=== PATIENT | male | born 2000 | race African-American/Black ===

== ENCOUNTER 2019-08-30 10:44 | Emergency (ER) | payer SELFPAY ==
--- NOTE | 2019-08-30 12:05 | EDPHYS ---
Physician Documentation [facility] Name: Lucille Lerner Age: 19 yrs Sex: Male : 2000 Arrival Date: 08/30/2019 Time: 10:46 Bed 20 Private MD: ED Physician Juan F Almonte HPI: 08/29 11:28 This 19 yrs old Black Male presents to ER via Ambulatory with complaints of Sore kb Throat, InQuicker. 11:28 The patient presents with sore throat. The patient describes throat pain as constant. kb Onset: The symptoms/episode began/occurred this morning. Severity of symptoms: At their worst the symptoms were moderate, in the emergency department the symptoms are unchanged. Modifying factors: The symptoms are alleviated by nothing, the symptoms are aggravated by swallowing, Patient's oral intake status: good Denies contact with similarly ill indivduals. Associated signs and symptoms: Pertinent positives: Sore throat Pertinent negatives chest pain, chills, cough, diarrhea, dysphagia, earache, fever, flu-like symptoms, headache, nausea, rhinorrhea, shortness of breath, vomiting. The patient has not experienced similar symptoms in the past. The patient has not recently seen a physician. Historical: - Allergies: 11:08 No Known Allergies; ca1 - Home Meds: 11:08 None [Active]; ca1 - PMHx: 11:08 Anxiety; Panic Attacks; Heart Murmur; ca1 - PSHx: 11:08 Tonsillectomy; ca1 - Immunization history:: Adult Immunizations not up to date. - Social history:: Smoking status: Patient denies any tobacco usage or history of. ROS: 11:27 Constitutional: Negative for fever, chills, and weight loss, Neck: Negative for injury, kb pain, and swelling, Cardiovascular: Negative for chest pain, palpitations, and edema, Abdomen/GI: Negative for abdominal pain, nausea, vomiting, diarrhea, and constipation, Back: Negative for injury and pain, MS/Extremity: Negative for injury and deformity, Skin: Negative for injury, rash, and discoloration, Neuro: Negative for headache, weakness, numbness, tingling, and seizure. 11:27 ENT: Positive for sore throat. 11:27 Respiratory: Positive for wheezing, Negative for cough, dyspnea on exertion, hemoptysis, orthopnea, pleurisy, shortness of breath, sputum production. Exam: 11:27 Constitutional: This is a well developed, well nourished patient who is awake, alert, kb and in no acute distress. Head/Face: Normocephalic, atraumatic. ENT: Nares patent. No nasal discharge, no septal abnormalities noted. Tympanic membranes are normal and external auditory canals are clear. Oropharynx with no redness, swelling, or masses, exudates, or evidence of obstruction, uvula midline. Mucous membranes moist. Neck: Trachea midline, no thyromegaly or masses palpated, and no cervical lymphadenopathy. Supple, full range of motion without nuchal rigidity, or vertebral point tenderness. No Meningismus. Chest/axilla: Normal chest wall appearance and motion. Nontender with no deformity. No lesions are appreciated. Cardiovascular: Regular rate and rhythm with a normal S1 and S2. No gallops, murmurs, or rubs. Normal PMI, no JVD. No pulse deficits. Respiratory: Lungs have equal breath sounds bilaterally, clear to auscultation and percussion. No rales, rhonchi or wheezes noted. No increased work of breathing, no retractions or nasal flaring. Abdomen/GI: Soft, non-tender, with normal bowel sounds. No distension or tympany. No guarding or rebound. No evidence of tenderness throughout. Skin: Warm, dry with normal turgor. Normal color with no rashes, no lesions, and no evidence of cellulitis. MS/ Extremity: Pulses equal, no cyanosis. Neurovascular intact. Full, normal range of motion. Neuro: Awake and alert, GCS 15, oriented to person, place, time, and situation. Cranial nerves II-XII grossly intact. Motor strength 5/5 in all extremities. Sensory grossly intact. Cerebellar exam normal. Normal gait. Vital Signs: 11:06 BP 140 / 82; Pulse 99; Resp 16 S; Temp 98.7(O); Pulse Ox 100% on R/A; Weight 104.33 kg ca1 (R); Height 6 ft. 2 in. (187.96 cm) (R); Pain 0/10; 12:31 BP 152 / 78; Pulse 87; Resp 16 S; Temp 98.6(O); Pulse Ox 100% on R/A; ca1 11:06 Body Mass Index 29.53 (104.33 kg, 187.96 cm) ca1 MDM: 10:58 Patient medically screened. kb 11:28 Data reviewed: vital signs, nurses notes. Data interpreted: Pulse oximetry: on room air kb is 100 %. Interpretation: normal. 12:04 Counseling: I had a detailed discussion with the patient and/or guardian regarding: the kb historical points, exam findings, and any diagnostic results supporting the discharge/admit diagnosis, lab results, the need for outpatient follow up, a family practitioner, to return to the emergency department if symptoms worsen or persist or if there are any questions or concerns that arise at home. 08/29 11:04 Order name: Strep; Complete Time: 11:45 kb 08/29 11:44 Order name: Throat Culture EDMS Administered Medications: No medications were administered Disposition: 13:24 Co-signature as Attending Physician, Juan F Almonte MD I agree with the assessment and kdr plan of care. Disposition: 08/30/19 12:05 Discharged to Home. Impression: Pain in throat. - Condition is Stable. - Discharge Instructions: Sore Throat, [id number]. - Medication Reconciliation Form, Thank You Letter, Antibiotic Education, Prescription Opioid Use, Work release form form. - Follow up: Emergency Department; When: As needed; Reason: Worsening of condition. Follow up: Private Physician; When: 2 - 3 days; Reason: Recheck today's complaints, Continuance of care, Re-evaluation by your physician. Signatures: Dispatcher [employer] EDMS Syl Riggins, VELOCITY [employer]ER-C MICKEY-Juan F Beatty MD MD [facility] Nilda Flor RN RN ca1 Corrections: (The following items were deleted from the chart) 12:32 12:05 08/30/2019 12:05 Discharged to Home. Impression: Pain in throat. Condition is ca1 Stable. Forms are Medication Reconciliation Form, Thank You Letter, Antibiotic Education, Prescription Opioid Use. Follow up: Emergency Department; When: As needed; Reason: Worsening of condition. Follow up: Private Physician; When: 2 - 3 days; Reason: Recheck today's complaints, Continuance of care, Re-evaluation by your physician. kb
--- NOTE | 2019-08-30 12:05 | ER ---
Nurse's Notes [facility] Name: Lucille Lerner Age: 19 yrs Sex: Male : 2000 Arrival Date: 08/30/2019 Time: 10:46 Bed 20 Private MD: Diagnosis: Pain in throat Presentation: 08/29 11:06 Chief complaint: Patient states: Sore throat since this morning. Denies cough, ca1 congestion and fever. Coronavirus screen: Patient denies fever greater than 100.4F, cough, shortness of breath, or difficulty breathing. Proceed with normal triage process. Ebola Screen: Patient negative for fever greater than or equal to 101.5 degrees Fahrenheit, and additional compatible Ebola Virus Disease symptoms Patient denies exposure to infectious person. Patient denies travel to an Ebola-affected area in the 21 days before illness onset. No symptoms or risks identified at this time. Initial Sepsis Screen: Does the patient meet any 2 criteria? No. Patient's initial sepsis screen is negative. Does the patient have a suspected source of infection? No. Patient's initial sepsis screen is negative. Risk Assessment: Do you want to hurt yourself or someone else? Patient reports no desire to harm self or others. Onset of symptoms was August 30, 2019. 11:06 Method Of Arrival: Ambulatory ca1 11:06 Acuity: [place] 4 ca1 Historical: - Allergies: 11:08 No Known Allergies; ca1 - Home Meds: 11:08 None [Active]; ca1 - PMHx: 11:08 Anxiety; Panic Attacks; Heart Murmur; ca1 - PSHx: 11:08 Tonsillectomy; ca1 - Immunization history:: Adult Immunizations not up to date. - Social history:: Smoking status: Patient denies any tobacco usage or history of. Screenin:20 Abuse screen: Denies threats or abuse. Denies injuries from another. Nutritional ca1 screening: No deficits noted. Tuberculosis screening: No symptoms or risk factors identified. Fall Risk None identified. Assessment: 11:20 General: Appears in no apparent distress. comfortable, Behavior is calm, cooperative, ca1 appropriate for age. Pain: Denies pain. Neuro: Level of Consciousness is awake, alert, obeys commands, Oriented to person, place, time, situation, Appropriate for age. Respiratory: Airway is patent Respiratory effort is even, unlabored, Respiratory pattern is regular, symmetrical, Breath sounds are clear bilaterally. EENT: Throat is clear with gag reflex present. Derm: Skin is intact, is healthy with good turgor, Skin is pink, warm \T\ dry. Musculoskeletal: Circulation, motion, and sensation intact. Capillary refill < 3 seconds. 12:31 Reassessment: Patient appears in no apparent distress at this time. Patient is alert, ca1 oriented x 3, equal unlabored respirations, skin warm/dry/pink. Vital Signs: 11:06 BP 140 / 82; Pulse 99; Resp 16 S; Temp 98.7(O); Pulse Ox 100% on R/A; Weight 104.33 kg ca1 (R); Height 6 ft. 2 in. (187.96 cm) (R); Pain 0/10; 12:31 BP 152 / 78; Pulse 87; Resp 16 S; Temp 98.6(O); Pulse Ox 100% on R/A; ca1 11:06 Body Mass Index 29.53 (104.33 kg, 187.96 cm) ca1 ED Course: 10:46 Patient arrived in ED. ag5 10:51 Syl Riggins FNP-C is [facility]. kb 10:51 Juan F Almonte MD is Attending Physician. kb 11:06 Nilda Flor, SHARIFA is Primary Nurse. ca1 11:07 Triage completed. ca1 11:08 Arm band placed on right wrist. ca1 11:20 Patient has correct armband on for positive identification. Bed in low position. Call ca1 light in reach. Side rails up X 1. Pulse ox on. NIBP on. 11:20 No provider procedures requiring assistance completed. Patient did not have IV access ca1 during this emergency room visit. Administered Medications: No medications were administered Outcome: 12:05 Discharge ordered by . kb 12:32 Discharged to home ambulatory. ca1 12:32 Condition: stable 12:32 Discharge instructions given to patient, Instructed on discharge instructions, follow up and referral plans. Demonstrated understanding of instructions, follow-up care. 12:32 Patient left the ED. ca1 Signatures: Syl Riggins FNP-C FNP-Nilda Randall RN RN ca1 Eze Nicolle ag5
[2019-08-30 12:39] VITALS: O2SAT 100
[2019-08-30 12:41] VITALS: BP 152/78; TEMP 98.6
== END 2019-08-30 12:32 | disposition home or self-care (01) ==
LOC: ER 10:44
DX: R07.0 Pain in throat (principal)
CPT/HCPCS: 87070; 87081; 99283

== ENCOUNTER 2019-09-03 06:00 | Emergency (ER) | payer SELFPAY ==
--- NOTE | 2019-09-03 07:15 | RAD REPORT ---
EXAM DESCRIPTION: RAD - Chest Pa And Lat (2 Views) - 09/03/2019 6:49 am CLINICAL HISTORY: COUGH, dizziness, sore throat, productive cough with hemoptysis COMPARISON: None TECHNIQUE: Frontal and lateral views of the chest were obtained. FINDINGS: The lungs are clear. Heart size is normal and central vasculature is within normal limit s. No pleural effusion or pneumothorax seen. No acute bony finding noted. No aortic abnormality. No significant interval change. IMPRESSION: No acute cardiopulmonary process.
--- NOTE | 2019-09-03 07:25 | EDPHYS ---
Physician Documentation [facility] Name: Lucille Lerner Age: 19 yrs Sex: Male : 2000 Arrival Date: 09/03/2019 Time: 06:02 Bed 5 Private MD: ED Physician Saul Hernandez HPI: 09/02 06:27 This 19 yrs old Black Male presents to ER via Ambulatory with complaints of Dizziness, cp Vision Problem, Sore Throat. 06:27 The patient presents with dizziness. Onset: The symptoms/episode began/occurred this cp morning, and improved. Associated signs and symptoms: Pertinent positives: chest heaviness, sore throat, productive cough, Pertinent negatives: abdominal pain, headache, vomiting, diarrhea. Patient's baseline: Neuro: alert and fully oriented, Motor: no deficits, Ambulation: walks without assistance, Speech: normal. Historical: - Allergies: 06:18 No Known Allergies; rv - Home Meds: 06:18 None [Active]; rv - PMHx: 06:18 Anxiety; Heart Murmur; Panic Attacks; rv - PSHx: 06:18 Tonsillectomy; rv - Immunization history:: Adult Immunizations up to date. - Social history:: Smoking status: Patient denies any tobacco usage or history of. ROS: 06:30 Eyes: Negative for injury, pain, redness, and discharge. cp 06:30 Constitutional: Negative for body aches, chills, fever, poor PO intake. 06:30 ENT: Positive for rhinorrhea, sore throat, Negative for drainage from ear(s), ear pain, difficulty swallowing, difficulty handling secretions. 06:30 Cardiovascular: Positive for chest pain, Negative for palpitations. 06:30 Respiratory: Positive for cough, hemoptysis, Negative for shortness of breath, wheezing. 06:30 Abdomen/GI: Negative for abdominal pain, vomiting, diarrhea, constipation. 06:30 : Negative for urinary symptoms. 06:30 Skin: Negative for cellulitis, rash. 06:30 Neuro: Negative for altered mental status, headache, weakness. 06:30 All other systems are negative. Exam: 06:35 Constitutional: The patient appears in no acute distress, alert, awake, comfortable, cp non-diaphoretic, non-toxic, well developed, well nourished. 06:35 Head/Face: Normocephalic, atraumatic. cp 06:35 Eyes: Periorbital structures: appear normal, Conjunctiva: normal, no exudate, no injection, Lids and lashes: appear normal, bilaterally. 06:35 ENT: External ear(s): are unremarkable, Ear canal(s): cerumen impaction, that is moderate, bilaterally, TM's: not visable, because of cerumen, Nose: is normal, Mouth: Lips: moist, Oral mucosa: pink and intact, moist, Posterior pharynx: Airway: no evidence of obstruction, patent, Tonsils: surgically absent, swelling, is not appreciated, erythema, is not appreciated, exudate, is not appreciated, Voice: is hoarse. 06:35 Neck: ROM/movement: is normal, is supple, without pain, no range of motions limitations, no meningismus, Lymph nodes: no appreciated lymphadenopathy. 06:35 Chest/axilla: Inspection: normal, Palpation: is normal, no crepitus, no tenderness. 06:35 Cardiovascular: Rate: normal, Rhythm: regular. 06:35 Respiratory: the patient does not display signs of respiratory distress, Respirations: normal, no use of accessory muscles, no retractions, labored breathing, is not present, Breath sounds: are clear throughout, no decreased breath sounds, no stridor, no wheezing. 06:35 Abdomen/GI: Exam negative for discomfort, distension, guarding, Inspection: abdomen appears normal. 06:35 Skin: no rash present. Vital Signs: 06:15 BP 140 / 100; Pulse 80; Resp 18; Temp 98.6; Pulse Ox 100% ; Weight 104.33 kg; Height 6 rv ft. 2 in. (187.96 cm); Pain 0/10; 06:35 BP 151 / 97 LA Supine; Pulse 85; Resp 19; Pulse Ox 100% ; rr5 06:37 BP 162 / 109 LA Sitting; Pulse 90; Resp 16; Pulse Ox 100% on R/A; rr5 06:39 BP 145 / 111 LA Standing; Pulse 92; Resp 17; Pulse Ox 99% on R/A; rr5 07:32 BP 142 / 84; Pulse 71; Resp 16; Temp 98.6; Pulse Ox 100% ; bp 06:15 Body Mass Index 29.53 (104.33 kg, 187.96 cm) rv MDM: 06:09 Patient medically screened. cp 06:52 Test interpretation: by ED physician or midlevel provider: chest xray negative for cp infiltrates or focal pneumonia. 07:23 Data reviewed: vital signs, nurses notes, lab test result(s), and as a result, I will cp discharge patient. 09/02 06:26 Order name: Strep; Complete Time: 07:19 cp 09/02 07:19 Interpretation: GP A STREP SC \T\nbsp; GROUP A STREP SCREEN-- \T\nbsp; \T\nbsp; POSITIVE; cp Reviewed. 09/02 06:26 Order name: [place] Screen Profile; Complete Time: 07:19 cp 09/02 06:26 Order name: Orthostatics; Complete Time: 06:40 cp 09/02 06:26 Order name: XRAY Chest Pa And Lat (2 Views); Complete Time: 07:19 09/02 07:20 Interpretation: Report reviewed. cp Administered Medications: 07:30 Drug: Bicillin L-A 1.2 million units Route: IM; Site: left gluteus; bp 07:44 Follow up: Response: No adverse reaction bp Disposition: 09/03 06:52 Co-signature as Attending Physician, Saul Hernandez MD I agree with the assessment and jasper plan of care. Disposition: 09/03/19 07:23 Discharged to Home. Impression: Streptococcal pharyngitis, Cough. - Condition is Stable. - Discharge Instructions: Strep Throat, How to Take Your Blood Pressure, [id number], Cough, Adult. - Prescriptions for Tessalon Perles 100 mg Oral Capsule - take 2 capsule by ORAL route every 8 hours As needed; 30 capsule. - Medication Reconciliation Form, Thank You Letter, Antibiotic Education, Prescription Opioid Use form. - Follow up: Private Physician; When: 2 - 3 days; Reason: Worsening of condition. - Problem is new. - Symptoms have improved. Signatures: Dispatcher [employer] Saul Ramos MD MD cha Page, Corey, PA PA cp Peltier, Brian, SHARIFA RN bp Lj Allison, SHARIFA RN rv Corrections: (The following items were deleted from the chart) 09/02 07:25 07:23 09/03/2019 07:23 Discharged to Home. Impression: Streptococcal pharyngitis. cp Condition is Stable. Forms are Medication Reconciliation Form, Thank You Letter, Antibiotic Education, Prescription Opioid Use. Follow up: Private Physician; When: 2 - 3 days; Reason: Worsening of condition. Problem is new. Symptoms have improved. cp 07:44 07:25 09/03/2019 07:23 Discharged to Home. Impression: Streptococcal pharyngitis; bp Cough. Condition is Stable. Discharge Instructions: Strep Throat, How to Take Your Blood Pressure, [id number]. Forms are Medication Reconciliation Form, Thank You Letter, Antibiotic Education, Prescription Opioid Use. Follow up: Private Physician; When: 2 - 3 days; Reason: Worsening of condition. Problem is new. Symptoms have improved. cp
--- NOTE | 2019-09-03 07:25 | ER ---
Nurse's Notes [facility] Name: Lucille Lerner Age: 19 yrs Sex: Male : 2000 Arrival Date: 09/03/2019 Time: 06:02 Bed 5 Private MD: Diagnosis: Streptococcal pharyngitis;Cough Presentation: 09/02 06:15 Chief complaint: Patient states: WOKE UP WITH DIZZINESS LASTED FOR COUPLE OF MINUTES. rv DENIES ANY FEVER. HE WAS SEEN SATURDAY AND NEGATIVE FOR STREP. SORE THROAT AND COUGH IS NOT GETTING BETTER. COUGHING OUT YELLOW MUCUS WITH BLOOD. Coronavirus screen: Patient reports a subjective fever or greater than 100.4F, or cough, or shortness of breath, or difficulty breathing. Surgical mask placed on patient. Patient moved to private room, placed in contact and droplet isolation with eye protection until further assessment. Patient denies travel on a cruise ship or to a country the [facility] currently lists as an affected area. Patient denies contact with known and/or suspected case of COVID-19. Ebola Screen: No symptoms or risks identified at this time. Initial Sepsis Screen: Does the patient meet any 2 criteria? No. Patient's initial sepsis screen is negative. Does the patient have a suspected source of infection? No. Patient's initial sepsis screen is negative. Risk Assessment: Do you want to hurt yourself or someone else? Patient reports no desire to harm self or others. 06:15 Method Of Arrival: Ambulatory 06:15 Acuity: [place] 5 rv 06:19 Onset of symptoms was September 03, 2019 at 05:00. rv Triage Assessment: 06:18 General: Appears in no apparent distress. comfortable, Behavior is calm, cooperative. rv Pain: Denies pain. EENT: Throat is pink. Neuro: Level of Consciousness is awake, alert, obeys commands, Oriented to person, place, time, situation. Cardiovascular: Patient's skin is warm and dry. Respiratory: Airway is patent Breath sounds are clear bilaterally. GI: No signs and/or symptoms were reported involving the gastrointestinal system. Historical: - Allergies: 06:18 No Known Allergies; rv - Home Meds: 06:18 None [Active]; rv - PMHx: 06:18 Anxiety; Heart Murmur; Panic Attacks; rv - PSHx: 06:18 Tonsillectomy; rv - Immunization history:: Adult Immunizations up to date. - Social history:: Smoking status: Patient denies any tobacco usage or history of. Screenin:19 Abuse screen: Denies threats or abuse. Denies injuries from another. Nutritional rv screening: No deficits noted. Tuberculosis screening: No symptoms or risk factors identified. Fall Risk None identified. Assessment: 06:19 Reassessment: SEE TRIAGE NOTES. General:. rv 06:19 Respiratory: Airway is patent Respiratory effort is even, unlabored. rv 07:00 Reassessment: RECD REPORT FROM MADIHA SKAGGS. 19YO BM P/W SORE THROAT AND ANXIETY, SEEN bp FOR SAME LAST WEEK. Respiratory: Breath sounds are clear bilaterally. 07:32 Reassessment: D/C ON HOLD FOR SHOT TIME. bp 07:43 Reassessment: PT D/C HOME AMBULATORY WITH FAMILY, DX WITH STREP PHARYNGITIS. bp Vital Signs: 06:15 BP 140 / 100; Pulse 80; Resp 18; Temp 98.6; Pulse Ox 100% ; Weight 104.33 kg; Height 6 rv ft. 2 in. (187.96 cm); Pain 0/10; 06:35 BP 151 / 97 LA Supine; Pulse 85; Resp 19; Pulse Ox 100% ; rr5 06:37 BP 162 / 109 LA Sitting; Pulse 90; Resp 16; Pulse Ox 100% on R/A; rr5 06:39 BP 145 / 111 LA Standing; Pulse 92; Resp 17; Pulse Ox 99% on R/A; rr5 07:32 BP 142 / 84; Pulse 71; Resp 16; Temp 98.6; Pulse Ox 100% ; bp 06:15 Body Mass Index 29.53 (104.33 kg, 187.96 cm) rv ED Course: 06:02 Patient arrived in ED. ds1 06:08 Saul Sorenson PA is PHCP. cp 06:08 Saul Hernandez MD is Attending Physician. cp 06:14 Lj Allison RN is Primary Nurse. rv 06:17 Triage completed. rv 06:18 Arm band placed on Patient placed in the treatment room, on a stretcher, Patient rv notified of wait time. 06:19 Patient has correct armband on for positive identification. Bed in low position. Call rv light in reach. Pulse ox on. NIBP on. 06:40 Initial lab(s) drawn, by me, sent to lab. Strep swab sent to lab. rv 06:56 XRAY Chest Pa And Lat (2 Views) In Process Unspecified. EDMS 07:10 Kris Terry, RN is Primary Nurse. bp 07:33 No provider procedures requiring assistance completed. Patient did not have IV access bp during this emergency room visit. Administered Medications: 07:30 Drug: Bicillin L-A 1.2 million units Route: IM; Site: left gluteus; bp 07:44 Follow up: Response: No adverse reaction bp Outcome: 07:23 Discharge ordered by MD. cp 07:43 Discharged to home ambulatory, with family. bp 07:43 Condition: stable 07:43 Discharge instructions given to patient, Instructed on discharge instructions, follow up and referral plans. medication usage, Demonstrated understanding of instructions, follow-up care, medications, Prescriptions given X 1. 07:44 Patient left the ED. bp Signatures: Dispatcher [employer] EDNM RazoDoris ds1 Saul Sorenson PA PA cp Kris Terry, RN RN bp Lj Allison, RN RN rv Madiha Maier, RN RN rr5
[2019-09-03] MEDS ORDERED: PEN G BENZ LA 1.2MU/2ML SYRINGE IM ONE (07:29)
[2019-09-03 10:06] VITALS: TEMP 98.6
[2019-09-03 10:12] VITALS: BP 142/84; O2SAT 100
== END 2019-09-03 07:44 | disposition home or self-care (01) ==
LOC: ER 06:00
DX: J02.0 Streptococcal pharyngitis (principal)
CPT/HCPCS: 36415; 71046; 86308; 87081; 96372; 99284; J0561

== ENCOUNTER 2019-11-01 15:32 | Emergency (ER) | payer SELFPAY ==
[2019-11-01] MEDS ORDERED: LORazepam 2 MG/ML VIAL ONE (15:51)
--- NOTE | 2019-11-01 16:12 | RAD REPORT ---
EXAM DESCRIPTION: RAD - Hand Right 3 View - 11/01/2019 4:06 pm CLINICAL HISTORY: hand injury, hand trauma COMPARISON: No comparisons FINDINGS: No fracture is identified. There is no dislocation or periosteal reaction noted. No forei gn body or significant soft tissue abnormality. IMPRESSION: Negative right hand examination.
--- NOTE | 2019-11-01 16:13 | RAD REPORT ---
EXAM DESCRIPTION: CT - Head Brain Wo Cont - 11/01/2019 3:56 pm CLINICAL HISTORY: headache, syncope COMPARISON: No comparisons TECHNIQUE: Axial 5 mm thick images of the head were obtained without IV contrast. All CT scans are performed using dose optimization technique as appropriate and may include automated exposure control or mA/KV adjustment according to patient size. FINDINGS: No intracranial hemorrhage, mass, edema or shift of mid-line structures. No acute infarcti on changes seen. No abnormal extra-axial fluid collections. Ventricles are normal. Mastoid air cells and visualized portions of the paranasal sinuses are clear. No acute bony findings. IMPRESSION: Negative non-contrast CT head examination.
[2019-11-01 16:14] LABS: Absolute Lymphocytes (CBC) 2.1 K/uL (0.7-4.9); Basophils % 0.6 % (0-1.3); Hematocrit 43.7 % (39.6-49.0); Lymphocytes % 39.4 % (15.3-44.8); MPV 10.8 fL (7.6-11.3); Protime INR 0.98; RBC Red Blood Cell Count 4.87 M/uL (4.33-5.43)
[2019-11-01 16:25] LABS: ALT/SGPT 80 U/L (12-78); AST/SGOT 29 U/L (15-37); Albumin 3.9 g/dL (3.4-5.0); Alkaline Phosphatase 94 U/L (45-117); BUN Blood Urea Nitrogen 9 mg/dL (7-18); Bicarbonate 27 mmol/L (21-32); Bilirubin Direct 0.1 mg/dL (0-0.2); Bilirubin Total 0.3 mg/dL (0.2-1.0); Glucose Level 96 mg/dL (74-106); Magnesium 1.9 mg/dL (1.8-2.4); NT PRO-BNP 7 pg/mL (<125); Protein, Total 7.5 g/dL (6.4-8.2); Sodium Level 144 mmol/L (136-145); Troponin (Emerg Dept Use Only) < 0.02 ng/mL (0.0-0.045)
[2019-11-01] MEDS ORDERED: METOCLOPRAMIDE 10 MG/2mL INJ ONE (17:08)
[2019-11-01] MEDS ORDERED: DIPHENHYDRAMINE 50 MG/ML VIAL ONE (17:08)
[2019-11-01] MEDS ORDERED: NA CHLORIDE 0.9% 100 ML IV ONE (17:08)
--- NOTE | 2019-11-01 18:12 | EDPHYS ---
[facility] Name: Lucille Lerner Age: 19 yrs Sex: Male : 2000 Arrival Date: 11/01/2019 Time: 15:34 Bed 7 Private MD: ED Physician Raheem Suarez HPI: 10/31 15:38 This 19 yrs old Black Male presents to ER via Unassigned with complaints of Headache, jmm Syncope. 15:38 The patient complains of pain to the forehead. The patient describes the headache as jmm aching. Onset: The symptoms/episode began/occurred gradually, 3.5 hour(s) ago. Associated signs and symptoms: Pertinent positives: syncope blurred vision. This is a 19 year old male with no known chronic medical conditions that presents to the ED with complaints of 1 week of headaches normally beginning around noon. Patient states the headaches have occurred every other day. Today the headache began around noon and migrated to the back. Patient states this headache had visual changes. Patient states he passed out. Denies fever, vomiting,. nausea. . Historical: - Allergies: 15:39 No Known Allergies; sv - PMHx: 15:39 Anxiety; Heart Murmur; Panic Attacks; sv - PSHx: 15:39 Tonsillectomy; sv - Immunization history:: Adult Immunizations up to date. - Social history:: Smoking status: Patient denies any tobacco usage or history of. Patient/guardian denies using alcohol, street drugs, IV drugs. ROS: 15:38 Constitutional: Negative for fever, chills, and weight loss, Cardiovascular: Negative jmm for chest pain, palpitations, and edema, Respiratory: Negative for shortness of breath, cough, wheezing, and pleuritic chest pain, Abdomen/GI: Negative for abdominal pain, nausea, vomiting, diarrhea, and constipation. 15:38 MS/extremity: Positive for injury or acute deformity. 15:38 Neuro: Positive for headache, syncope. 15:38 All other systems are negative. Exam: 15:38 Constitutional: This is a well developed, well nourished patient who is awake, alert, jmm and in no acute distress. Head/Face: atraumatic. Eyes: EOMI, no conjunctival erythema appreciated ENT: Moist Mucus Membranes Neck: Trachea midline, Supple Chest/axilla: Normal chest wall appearance and motion. Cardiovascular: Regular rate and rhythm. No edema appreciated Respiratory: Normal respirations, no respiratory distress appreciated Abdomen/GI: Non distended, soft Back: Normal ROM Skin: General appearance color normal 15:38 Musculoskeletal/extremity: right dorsal hand TTP, compartments are soft, FROM appreciated, < 2 sec dist cap refill, NVI. 15:38 Skin: Appearance: Color: normal in color. 15:38 Neuro: Orientation: is normal, Mentation: is normal, Memory: is normal. 15:38 Psych: Behavior/mood is pleasant, cooperative. Vital Signs: 15:27 BP 170 / 95; Pulse 94; Resp 20; Temp 98.3; Pulse Ox 100% ; sv 15:50 BP 162 / 90; Pulse 87; Resp 16; Pulse Ox 99% ; sv 17:07 BP 162 / 94; Pulse 84; Resp 18; Pulse Ox 100% ; sv MDM: 15:42 Patient medically screened. [facility] 18:10 Data reviewed: vital signs, nurses notes. Counseling: I had a detailed discussion with mine the patient and/or guardian regarding: the historical points, exam findings, and any diagnostic results supporting the discharge/admit diagnosis, lab results, radiology results, the need for outpatient follow up, to return to the emergency department if symptoms worsen or persist or if there are any questions or concerns that arise at home. ED course: CT negative within 6 hours. I do not suspect SAH. Patient is advised to follow up with pcp and otherwise given strict return precautions. Patient understood and agrees with the plan of care. . 10/31 15:37 Order name: Basic Metabolic Panel; Complete Time: 16:30 [facility] 10/31 15:37 Order name: CBC with Diff; Complete Time: 16:17 [facility] 10/31 15:37 Order name: LFT's; Complete Time: 16:30 [facility] 10/31 15:37 Order name: Magnesium; Complete Time: 16:30 [facility] 10/31 15:37 Order name: NT PRO-BNP; Complete Time: 16:30 [facility] 10/31 15:37 Order name: PT-INR; Complete Time: 16:30 [facility] 10/31 15:37 Order name: Troponin (emerg Dept Use Only); Complete Time: 16:30 [facility] 10/31 15:37 Order name: CT Head Brain wo Cont; Complete Time: 16:17 [facility] 10/31 15:41 Order name: Hand Right 3 View XRAY; Complete Time: 16:17 [facility] 10/31 16:34 Order name: D-Dimer; Complete Time: 17:11 [facility] 10/31 15:37 Order name: EKG; Complete Time: 15:37 [facility] 10/31 15:37 Order name: Cardiac monitoring; Complete Time: 17:44 [facility] 10/31 15:37 Order name: EKG - Nurse/Tech; Complete Time: 16:46 [facility] 10/31 15:37 Order name: IV Saline Lock; Complete Time: 15:53 [facility] 10/31 15:37 Order name: Labs collected and sent; Complete Time: 15:53 [facility] 10/31 15:37 Order name: O2 Per Protocol; Complete Time: 15:53 [facility] 10/31 15:37 Order name: O2 Sat Monitoring; Complete Time: 15:53 jm Administered Medications: 15:47 Drug: Ativan 1 mg Route: IVP; Infused Over: 2 mins; Site: left antecubital; sv 16:30 Follow up: Response: No adverse reaction sv 17:05 CANCELLED (Physician Discretion): Reglan 10 mg IVP once; over 1 to 2 minutes sv 17:10 Drug: Benadryl 25 mg Route: IVP; Site: left antecubital; sv 17:45 Follow up: Response: No adverse reaction sv 17:12 Drug: Reglan 10 mg Route: IVP; Site: left antecubital; sv 17:21 Follow up: Response: No adverse reaction sv Disposition: 11/01/19 18:11 Discharged to Home. Impression: Headache, Elevated blood-pressure reading, without diagnosis of hypertension. - Condition is Stable. - Discharge Instructions: General Headache Without Cause, Migraine Headache, Hypertension, DASH Eating Plan. - Prescriptions for Hydrochlorothiazide 12.5 mg Oral Tablet - take 1 tablet by ORAL route once daily; 30 tablet. - Medication Reconciliation Form, Thank You Letter, Antibiotic Education, Prescription Opioid Use form. - Follow up: Private Physician; When: 2 - 3 days; Reason: Recheck today's complaints, Continuance of care, Re-evaluation by your physician. Signatures: Dispatcher [employer] Yamilet Campuzano RN RN Art Suero PA PA jmm Corrections: (The following items were deleted from the chart) 15:58 15:58 Social history: Smoking status: Patient denies any tobacco usage or history of. sv Patient/guardian denies using street drugs, IV drugs, sv 16:57 16:35 Head Angio+CT.RAD.BRZ ordered. EDMS EDMS 16:57 16:35 Neck Angio+CT.RAD.BRZ ordered. EDMS EDMS 17:05 17:05 Reglan 10 mg IVP once; over 1 to 2 minutes ordered. sv sv 18:25 18:11 11/01/2019 18:11 Discharged to Home. Impression: Headache; Elevated sv blood-pressure reading, without diagnosis of hypertension. Condition is Stable. Forms are Medication Reconciliation Form, Thank You Letter, Antibiotic Education, Prescription Opioid Use. Follow up: Private Physician; When: 2 - 3 days; Reason: Recheck today's complaints, Continuance of care, Re-evaluation by your physician. mine
--- NOTE | 2019-11-01 18:12 | ER ---
Nurse's Notes [facility] Name: Lucille Lerner Age: 19 yrs Sex: Male : 2000 Arrival Date: 11/01/2019 Time: 15:34 Bed 7 Private MD: Diagnosis: Headache;Elevated blood-pressure reading, without diagnosis of hypertension Presentation: 10/31 15:27 Chief complaint: EMS states: called out for HTN but on arrival pt had actually started sv having a left frontal headache that radiates to the left occipital area and believes he had a syncopal episode and woke up confused. He had some blurry vision but it only lasted a few seconds and is back to normal now. Family had checked his BP and it was high. Lenka (-) CORBY (-). BS-127 BP 160/100 \T\ 140/84. Coronavirus screen: Proceed with normal triage. Patient denies a cough. Patient denies shortness of breath or difficulty breathing. Patient denies measured and/or subjective temperature greater than 100.4F prior to today's visit. Patient denies travel on a cruise ship or to a country the [facility] currently lists as an affected area. Patient denies contact with known and/or suspected case of COVID-19. Ebola Screen: No symptoms or risks identified at this time. Initial Sepsis Screen: Does the patient meet any 2 criteria? HR > 90 bpm. No. Patient's initial sepsis screen is negative. Does the patient have a suspected source of infection? No. Patient's initial sepsis screen is negative. Risk Assessment: Do you want to hurt yourself or someone else? Patient reports no desire to harm self or others. Onset of symptoms was November 01, 2019. 15:27 Method Of Arrival: EMS: [facility] sv 15:27 Acuity: [place] 2 sv Triage Assessment: 15:27 Headache History: The patient has had previous headaches and this one is similar to sv previous episodes. General: Appears in no apparent distress. comfortable, well groomed, well developed, Behavior is cooperative, appropriate for age, anxious. Pain: Complains of pain in left side of forehead, left temporal area, left occipital area and left base of the skull Pain currently is 5 out of 10 on a pain scale. Pain began 1 hour ago. Is continuous, Also complains of no other associated symptoms. Neuro: Level of Consciousness is awake, alert, obeys commands, Oriented to person, place, time, situation, Moves all extremities. Full function Gait is steady, Speech is normal, Facial symmetry appears normal, Reports headache in left parietal area, frontal area, occipital area. Cardiovascular: Patient's skin is warm and dry. Respiratory: Airway is patent Respiratory effort is even, unlabored, Respiratory pattern is regular, symmetrical. Derm: Skin is intact, Skin is normal. Musculoskeletal: Range of motion: intact in all extremities. Historical: - Allergies: 15:39 No Known Allergies; sv - PMHx: 15:39 Anxiety; Heart Murmur; Panic Attacks; sv - PSHx: 15:39 Tonsillectomy; sv - Immunization history:: Adult Immunizations up to date. - Social history:: Smoking status: Patient denies any tobacco usage or history of. Patient/guardian denies using alcohol, street drugs, IV drugs. Screenin:30 Abuse screen: Denies threats or abuse. Denies injuries from another. Nutritional sv screening: No deficits noted. Tuberculosis screening: No symptoms or risk factors identified. Fall Risk None identified. Assessment: 15:47 Reassessment: Patient appears in no apparent distress at this time. No changes from sv previously documented assessment. Patient and/or family updated on plan of care and expected duration. Pain level reassessed. Patient is alert, oriented x 3, equal unlabored respirations, skin warm/dry/pink. 17:05 Reassessment: Patient appears in no apparent distress at this time. No changes from sv previously documented assessment. Patient and/or family updated on plan of care and expected duration. Pain level reassessed. Patient is alert, oriented x 3, equal unlabored respirations, skin warm/dry/pink. Pt remains with a headache, informed Art TOLBERT. 17:25 Reassessment: Patient appears in no apparent distress at this time. Patient and/or sv family updated on plan of care and expected duration. Pain level reassessed. Patient is alert, oriented x 3, equal unlabored respirations, skin warm/dry/pink. Patient states symptoms have improved. 18:21 Reassessment: Patient appears in no apparent distress at this time. Patient and/or sv family updated on plan of care and expected duration. Pain level reassessed. Patient is alert, oriented x 3, equal unlabored respirations, skin warm/dry/pink. Patient states symptoms have improved. Vital Signs: 15:27 BP 170 / 95; Pulse 94; Resp 20; Temp 98.3; Pulse Ox 100% ; sv 15:50 BP 162 / 90; Pulse 87; Resp 16; Pulse Ox 99% ; sv 17:07 BP 162 / 94; Pulse 84; Resp 18; Pulse Ox 100% ; sv ED Course: 15:27 Maintain EMS IV. Dressing intact. Site clean \T\ dry. Gauge \T\ site: 20G L AC. sv 15:30 Patient has correct armband on for positive identification. Bed in low position. Call sv light in reach. Side rails up X 1. shelter monitor on. Pulse ox on. NIBP on. Door closed. Head of bed elevated. 15:34 Patient arrived in ED. sv 15:35 Yamilet Shen, SHARIFA is Primary Nurse. sv 15:36 Art Ambrosio PA is PHCP. [facility] 15:36 Raheem Suarez MD is Attending Physician. jmm 15:39 Triage completed. sv 15:39 Arm band placed on. sv 15:45 Initial lab(s) drawn, by nv, sent to lab. sv 15:56 CT completed. Patient moved to radiology. mw3 15:56 CT Head Brain wo Cont In Process Unspecified. EDMS 16:03 Hand Right 3 View XRAY In Process Unspecified. EDMS 18:21 No provider procedures requiring assistance completed. pt removed his IV. sv Administered Medications: 15:47 Drug: Ativan 1 mg Route: IVP; Infused Over: 2 mins; Site: left antecubital; sv 16:30 Follow up: Response: No adverse reaction sv 17:05 CANCELLED (Physician Discretion): Reglan 10 mg IVP once; over 1 to 2 minutes sv 17:10 Drug: Benadryl 25 mg Route: IVP; Site: left antecubital; sv 17:45 Follow up: Response: No adverse reaction sv 17:12 Drug: Reglan 10 mg Route: IVP; Site: left antecubital; sv 17:21 Follow up: Response: No adverse reaction sv Outcome: 18:11 Discharge ordered by . [facility] 18:22 Discharged to home ambulatory. sv 18:22 Condition: stable 18:22 Condition: improved 18:22 Discharge instructions given to patient, Instructed on discharge instructions, follow up and referral plans. medication usage, continuing with his BP log and to f/u with his PCP. Demonstrated understanding of instructions, follow-up care, medications, keeping a BP log Prescriptions given X 1. 18:25 Patient left the ED. sv Signatures: Dispatcher [employer] Yamilet Campuzano RN RN Art Ambrosio PA PA jmm Willis, Michelle mw3 Corrections: (The following items were deleted from the chart) 15:58 15:58 Social history: Smoking status: Patient denies any tobacco usage or history of. sv Patient/guardian denies using street drugs, IV drugs, sv 15:58 15:57 BP 162 / 90; Pulse 87bpm; Resp 16bpm; Pulse Ox 99%; sv sv
[2019-11-01 18:36] VITALS: BP 162/94; O2SAT 100
--- NOTE | 2019-11-02 08:53 | EKG ---
Test Date: 2019-11-01 Test Time: 16:12:06 Cable Repairer: EMILIE MEASUREMENT RESULTS: Intervals: Rate: 95 MO: 144 QRSD: 94 QT: 320 QTc: 402 [place]: P: 60 MO: 144 QRS: 55 T: 39 INTERPRETIVE STATEMENTS: Normal sinus rhythm Nonspecific T wave abnormality Abnormal ECG Compared to ECG 01/23/2017 01:27:44 T-wave abnormality now present Electronically Signed On 11-02-19 08:52:19 CDT by Ambrosio Núñez
== END 2019-11-01 18:25 | disposition home or self-care (01) ==
LOC: ER 15:32
DX: R03.0 Elevated blood-pressure reading, without diagnosis of hypertension (principal)
CPT/HCPCS: 36415; 70450; 80048; 80076; 83735; 83880; 84484; 85025; 85379; 85610; 93005; 96374; 96375; 99284; J1200; J2765

== ENCOUNTER 2020-03-17 13:04 | Emergency (ER) | payer SELFPAY ==
--- NOTE | 2020-03-17 13:19 | EDPHYS ---
Physician Documentation [facility] Name: Lucille Lerner Age: 19 yrs Sex: Male : 2000 Arrival Date: 03/17/2020 Time: 13:04 Bed 19 Private MD: ED Physician Mau Cheung HPI: 03/17 13:11 This 19 yrs old Black Male presents to ER via Unassigned with complaints of Foreign kb Body - fish hook in finger. 13:11 The patient or guardian reports the patient has a suspected foreign body, of the right kb index finger. The reported likely foreign body is a fishhook. Onset: The symptoms/episode began/occurred 30 minute(s) ago. Current symptoms: foreign body sensation. Treatment Prior to Arrival: tried to remove, but couldn't get out. The patient has not experienced similar symptoms in the past. The patient has not recently seen a physician. Historical: - Allergies: 13:27 No Known Allergies; bp - Home Meds: 13:27 None [Active]; bp - PMHx: 13:27 Anxiety; Heart Murmur; Panic Attacks; bp - Immunization history:: Adult Immunizations up to date, Last tetanus immunization: unknown. - Social history:: Smoking status: Patient denies any tobacco usage or history of. ROS: 13:09 Constitutional: Negative for fever, chills, and weight loss, Cardiovascular: Negative kb for chest pain, palpitations, and edema, Respiratory: Negative for shortness of breath, cough, wheezing, and pleuritic chest pain, Abdomen/GI: Negative for abdominal pain, nausea, vomiting, diarrhea, and constipation, MS/Extremity: Negative for injury and deformity, Neuro: Negative for headache, weakness, numbness, tingling, and seizure. 13:09 Skin: Positive for of the palmar aspect of distal phalanx of right index finger, fishhook. Exam: 13:09 Constitutional: This is a well developed, well nourished patient who is awake, alert, kb and in no acute distress. Head/Face: Normocephalic, atraumatic. Chest/axilla: Normal chest wall appearance and motion. Nontender with no deformity. No lesions are appreciated. Cardiovascular: Regular rate and rhythm with a normal S1 and S2. No gallops, murmurs, or rubs. Normal PMI, no JVD. No pulse deficits. Respiratory: Lungs have equal breath sounds bilaterally, clear to auscultation and percussion. No rales, rhonchi or wheezes noted. No increased work of breathing, no retractions or nasal flaring. Abdomen/GI: Soft, non-tender, with normal bowel sounds. No distension or tympany. No guarding or rebound. No evidence of tenderness throughout. MS/ Extremity: Pulses equal, no cyanosis. Neurovascular intact. Full, normal range of motion. Neuro: Awake and alert, GCS 15, oriented to person, place, time, and situation. Cranial nerves II-XII grossly intact. Motor strength 5/5 in all extremities. Sensory grossly intact. Cerebellar exam normal. Normal gait. 13:09 Skin: injury, fishhook to distal right index finger. Vital Signs: 13:10 BP 158 / 95; Pulse 89; Resp 18; Temp 98; Pulse Ox 99% ; bp Procedures: 13:17 Foreign Body Removal: a fishhook, from the right palmar aspect of distal phalanx of kb right index finger, by injected 1ml of lidocaine 1% and pushed hook through. The patient tolerated the removal well. MDM: 13:09 Patient medically screened. kb 13:09 Data reviewed: vital signs, nurses notes. Data interpreted: Pulse oximetry: on room air kb is 100 %. Interpretation: normal. Counseling: I had a detailed discussion with the patient and/or guardian regarding: the historical points, exam findings, and any diagnostic results supporting the discharge/admit diagnosis, the need for outpatient follow up, a family practitioner, to return to the emergency department if symptoms worsen or persist or if there are any questions or concerns that arise at home. Administered Medications: 13:24 Drug: Lidocaine (1 %) 1 vials {Note: AT B/S FOR LMP.} Volume: 5 ml; Route: Infiltration;bp 13:24 Drug: Tetanus-Diphtheria Toxoid Adult 0.5 ml {Dietitian Teaching: [employer]. Exp: bp 08/12/2022. Lot #: [id number]. } Route: IM; Site: right deltoid; 13:28 Follow up: Response: No adverse reaction bp Disposition: 13:39 Co-signature as Attending Physician, Mau Cheung MD. rn Disposition: 03/17/20 13:18 Discharged to Home. Impression: Puncture wound with foreign body of right index finger without damage to nail. - Condition is Stable. - Discharge Instructions: Foreign Body. - Medication Reconciliation Form, Thank You Letter, Antibiotic Education, Prescription Opioid Use form. - Follow up: Emergency Department; When: As needed; Reason: Worsening of condition. Follow up: Private Physician; When: 2 - 3 days; Reason: Recheck today's complaints, Continuance of care, Re-evaluation by your physician. Signatures: Syl Riggins, MICKEY-C DISTRICT MANAGER [employer]-Mau Bermudez MD MD rn HarrisonrKis RN RN bp Corrections: (The following items were deleted from the chart) 13:37 13:18 03/17/2020 13:18 Discharged to Home. Impression: Puncture wound with foreign body bp of right index finger without damage to nail. Condition is Stable. Forms are Medication Reconciliation Form, Thank You Letter, Antibiotic Education, Prescription Opioid Use. Follow up: Emergency Department; When: As needed; Reason: Worsening of condition. Follow up: Private Physician; When: 2 - 3 days; Reason: Recheck today's complaints, Continuance of care, Re-evaluation by your physician. kb
[2020-03-17] MEDS ORDERED: LIDOCAINE 1% MPF 5 ML VIAL ONE (13:24)
[2020-03-17] MEDS ORDERED: TETANUS & DIPHTHERIA TOX,ADULT 0.5 ML VIAL ONE (13:25)
--- NOTE | 2020-03-17 13:38 | ER ---
Nurse's Notes [facility] Name: Lucille Lerner Age: 19 yrs Sex: Male : 2000 Arrival Date: 03/17/2020 Time: 13:04 Bed 19 Private MD: Diagnosis: Puncture wound with foreign body of right index finger without damage to nail Presentation: 03/17 13:10 Chief complaint: Patient states: FISH HOOK TO FINGER. Coronavirus screen: At this time, bp the client does not indicate any symptoms associated with coronavirus-19. Ebola Screen: No symptoms or risks identified at this time. Initial Sepsis Screen: Does the patient meet any 2 criteria? No. Patient's initial sepsis screen is negative. Does the patient have a suspected source of infection? No. Patient's initial sepsis screen is negative. Risk Assessment: Do you want to hurt yourself or someone else? Patient reports no desire to harm self or others. Onset of symptoms was March 17, 2020 at 12:30. 13:10 Method Of Arrival: Ambulatory bp 13:10 Acuity: [place] 3 bp Triage Assessment: 13:10 General: Appears in no apparent distress. uncomfortable, Behavior is calm, cooperative, bp appropriate for age. 13:10 Pain: Complains of pain in palmar aspect of distal phalanx of right index finger. EENT: bp No deficits noted. Neuro: No deficits noted. Cardiovascular: No deficits noted. Respiratory: No deficits noted. GI: No signs and/or symptoms were reported involving the gastrointestinal system. : No signs and/or symptoms were reported regarding the genitourinary system. Derm: No deficits noted. Musculoskeletal: No deficits noted. Historical: - Allergies: 13:27 No Known Allergies; bp - Home Meds: 13:27 None [Active]; bp - PMHx: 13:27 Anxiety; Heart Murmur; Panic Attacks; bp - Immunization history:: Adult Immunizations up to date, Last tetanus immunization: unknown. - Social history:: Smoking status: Patient denies any tobacco usage or history of. Screenin:10 Abuse screen: Denies threats or abuse. Denies injuries from another. Nutritional bp screening: No deficits noted. Tuberculosis screening: No symptoms or risk factors identified. Fall Risk None identified. Assessment: 13:10 General: SEE TRIAGE NOTE. bp 13:29 Reassessment: PT D/C HOME AMBULATORY, DX WITH FOREIGN BODY. bp Vital Signs: 13:10 BP 158 / 95; Pulse 89; Resp 18; Temp 98; Pulse Ox 99% ; bp ED Course: 13:04 Patient arrived in ED. as 13:05 Syl Riggins FNP-C is [facility]. kb 13:05 Mau Cheung MD is Attending Physician. kb 13:10 Patient has correct armband on for positive identification. Bed in low position. Call bp light in reach. Side rails up X2. 13:19 Kris Terry, RN is Primary Nurse. bp 13:26 Triage completed. bp 13:28 Arm band placed on. bp 13:29 No provider procedures requiring assistance completed. bp 13:29 Patient did not have IV access during this emergency room visit. bp Administered Medications: 13:24 Drug: Lidocaine (1 %) 1 vials {Note: AT B/S FOR LMP.} Volume: 5 ml; Route: Infiltration;bp 13:24 Drug: Tetanus-Diphtheria Toxoid Adult 0.5 ml {Guitar Repair Technician: [employer]. Exp: bp 08/12/2022. Lot #: [id number]. } Route: IM; Site: right deltoid; 13:28 Follow up: Response: No adverse reaction bp Outcome: 13:18 Discharge ordered by . kb 13:29 Discharged to home ambulatory, with family. bp 13:29 Condition: stable 13:29 Discharge instructions given to patient, Instructed on discharge instructions, follow up and referral plans. Demonstrated understanding of instructions, follow-up care. 13:37 Patient left the ED. bp Signatures: Syl Riggins FNP-C ASSEMBLER [employer]-Myla Gtz as Kris Terry, RN RN bp
[2020-03-17 14:01] VITALS: BP 158/95; TEMP 98; O2SAT 99
== END 2020-03-17 13:37 | disposition home or self-care (01) ==
LOC: ER 13:04
DX: S61.240A Puncture wound with foreign body of right index finger without damage to nail, initial encounter (principal)
CPT/HCPCS: 90471; 90714; 99283

== ENCOUNTER 2020-05-06 02:50 | Emergency (ER) | payer SELFPAY ==
[2020-05-06] MEDS ORDERED: MAGNES/ALUMIN/SIMET 30ML UCUP ONE (03:33)
[2020-05-06 03:39] LABS: Absolute Lymphocytes (CBC) 2.5 K/uL (0.7-4.9); Basophils % 0.8 % (0-1.3); Hematocrit 43.5 % (39.6-49.0); MPV 10.5 fL (7.6-11.3); RBC Red Blood Cell Count 4.83 M/uL (4.33-5.43)
[2020-05-06] MEDS ORDERED: FAMOTIDINE 20 MG/2 ML VIAL IV ONE (03:39)
[2020-05-06 03:49] LABS: Protime INR 0.96
[2020-05-06 04:03] LABS: ALT/SGPT 40 U/L (12-78); AST/SGOT 24 U/L (15-37); Albumin 3.9 g/dL (3.4-5.0); Alkaline Phosphatase 87 U/L (45-117); BUN Blood Urea Nitrogen 10 mg/dL (7-18); Bicarbonate 30 mmol/L (21-32); Bilirubin Direct < 0.1 mg/dL (0-0.2); Bilirubin Total 0.3 mg/dL (0.2-1.0); Glucose Level 116 mg/dL (74-106); Lipase 99 U/L (73-393); Magnesium 2.1 mg/dL (1.8-2.4); NT PRO-BNP 11 pg/mL (<125); Potassium 3.8 mmol/L (3.5-5.1); Protein, Total 7.3 g/dL (6.4-8.2); Sodium Level 144 mmol/L (136-145); Troponin (Emerg Dept Use Only) < 0.02 ng/mL (0.0-0.045)
--- NOTE | 2020-05-06 04:19 | EDPHYS ---
Physician Documentation [facility] Name: Lucille Lerner Age: 19 yrs Sex: Male : 2000 Arrival Date: 05/06/2020 Time: 02:53 Bed 7 Private MD: Yamilet Beltrán ED Physician Raheem Suarez HPI: 05/06 03:35 This 19 yrs old Black Male presents to ER via Ambulatory with complaints of Heartburn. mh7 03:35 The patient presents with abdominal pain in the epigastric area. Onset: The mh7 symptoms/episode began/occurred today, at 01:00. The symptoms do not radiate. Associated signs and symptoms: Pertinent negatives: nausea, vomiting, and diarrhea, nausea and vomiting, anorexia, blood in stools, chest pain, constipation, diarrhea, dysuria, fever, headache, hematuria, nausea, palpitations, shortness of breath, testicular pain, vomiting, vomiting blood. The symptoms are described as burning. Modifying factors: The symptoms are alleviated by nothing, the symptoms are aggravated by food. Severity of pain: At its worst the pain was moderate today, in the emergency department the pain has improved moderately. 04:20 Patient states that he laid down right after eating food then started to feel a burning mh7 pain in his upper abdominal area.. Historical: - Allergies: 03:07 No Known Drug Allergies; ea 03:07 No Known Allergies; ea 03:08 No Known Allergies; - Home Meds: 03:07 None [Active]; ea 03:08 amlodipine 10 mg tab 1 tab once daily [Active]; - PMHx: 03:07 Anxiety; Heart Murmur; Panic Attacks; 03:08 Anxiety; Heart Murmur; Panic Attacks; Hypertension; - PSHx: 03:08 Tonsillectomy; - Immunization history:: Adult Immunizations up to date, Adult Immunizations up to date. - Social history:: Smoking status: Patient denies any tobacco usage or history of. Smoking status: Patient/guardian denies using. ROS: 03:35 Constitutional: Negative for fever, chills, and weight loss, Eyes: Negative for injury, mh7 pain, redness, and discharge, ENT: Negative for injury, pain, and discharge, Neck: Negative for injury, pain, and swelling, Cardiovascular: Negative for chest pain, palpitations, and edema, Respiratory: Negative for shortness of breath, cough, wheezing, and pleuritic chest pain, Back: Negative for injury and pain, : Negative for injury, bleeding, discharge, and swelling, MS/Extremity: Negative for injury and deformity, Skin: Negative for injury, rash, and discoloration, Neuro: Negative for headache, weakness, numbness, tingling, and seizure, Psych: Negative for depression, anxiety, suicide ideation, homicidal ideation, and hallucinations, Allergy/Immunology: Negative for hives, rash, and allergies, Endocrine: Negative for neck swelling, polydipsia, polyuria, polyphagia, and marked weight changes, Hematologic/Lymphatic: Negative for swollen nodes, abnormal bleeding, and unusual bruising. Exam: 03:35 Constitutional: This is a well developed, well nourished patient who is awake, alert, mh7 and in no acute distress. Head/Face: Normocephalic, atraumatic. Eyes: Pupils equal round and reactive to light, extra-ocular motions intact. Lids and lashes normal. Conjunctiva and sclera are non-icteric and not injected. Cornea within normal limits. Periorbital areas with no swelling, redness, or edema. Neck: Trachea midline, no thyromegaly or masses palpated, and no cervical lymphadenopathy. Supple, full range of motion without nuchal rigidity, or vertebral point tenderness. No Meningismus. Chest/axilla: Normal chest wall appearance and motion. Nontender with no deformity. No lesions are appreciated. Cardiovascular: Regular rate and rhythm with a normal S1 and S2. No gallops, murmurs, or rubs. Normal PMI, no JVD. No pulse deficits. Respiratory: Lungs have equal breath sounds bilaterally, clear to auscultation and percussion. No rales, rhonchi or wheezes noted. No increased work of breathing, no retractions or nasal flaring. Abdomen/GI: Soft, non-tender, with normal bowel sounds. No distension or tympany. No guarding or rebound. No evidence of tenderness throughout. Back: No spinal tenderness. No costovertebral tenderness. Full range of motion. Skin: Warm, dry with normal turgor. Normal color with no rashes, no lesions, and no evidence of cellulitis. MS/ Extremity: Pulses equal, no cyanosis. Neurovascular intact. Full, normal range of motion. Neuro: Awake and alert, GCS 15, oriented to person, place, time, and situation. Cranial nerves II-XII grossly intact. Motor strength 5/5 in all extremities. Sensory grossly intact. Cerebellar exam normal. Normal gait. Psych: Awake, alert, with orientation to person, place and time. Behavior, mood, and affect are within normal limits. 04:15 ECG was reviewed by the Attending Physician. [facility] Vital Signs: 03:04 BP 162 / 90; Pulse 91; Resp 18; Temp 97.7; Pulse Ox 100% ; ea 04:15 BP 143 / 62; Pulse 90; Resp 18; Pulse Ox 99% ; ea MDM: 04:15 Differential diagnosis: gastritis, gastroesophageal reflux disease, non-specific abd [facility] pain, pancreatitis, Peptic Ulcer Disease. Data reviewed: vital signs, nurses notes, old medical records, lab test result(s), amylase and lipase, CBC, electrolytes, urinalysis, EKG, radiologic studies, plain films. Data interpreted: Pulse oximetry: on room air is 100 %. Interpretation: normal. Counseling: I had a detailed discussion with the patient and/or guardian regarding: the historical points, exam findings, and any diagnostic results supporting the discharge/admit diagnosis, the presence of at least one elevated blood pressure reading (>120/80) during this emergency department visit, lab results, radiology results, the need for outpatient follow up, to return to the emergency department if symptoms worsen or persist or if there are any questions or concerns that arise at home. Response to treatment: the patient's symptoms have resolved after treatment, the patient's blood pressure is in an acceptable range, mental status has returned to baseline, the patient no longer shows bradycardia, the patient is not short of breath, the patient is not tachycardic, the patient's pain is gone, the patient's temperature has normalized, the patient's condition has returned to base line, the patient is now symptom free. 04:18 Patient medically screened. [facility] 05/06 03:13 Order name: Basic Metabolic Panel; Complete Time: 04:11 05/06 03:13 Order name: CBC with Diff; Complete Time: 04: 05/06 03:13 Order name: LFT's; Complete Time: 04: 05/06 03:13 Order name: Magnesium; Complete Time: 04:11 05/06 03:13 Order name: NT PRO-BNP; Complete Time: 04:11 05/06 03:13 Order name: PT-INR; Complete Time: 04:11 05/06 03:13 Order name: Troponin (emerg Dept Use Only); Complete Time: 04:11 05/06 03:13 Order name: XRAY Chest (1 view) 05/06 03:13 Order name: EKG; Complete Time: 03:15 05/06 03:13 Order name: Cardiac monitoring; Complete Time: 03:23 05/06 03:13 Order name: EKG - Nurse/Tech; Complete Time: 03:23 05/06 03:14 Order name: Lipase; Complete Time: 04: 05/06 03:13 Order name: IV Saline Lock; Complete Time: 03:27 05/06 03:13 Order name: Labs collected and sent; Complete Time: 03:27 05/06 03:13 Order name: O2 Per Protocol; Complete Time: 03:24 05/06 03:13 Order name: O2 Sat Monitoring; Complete Time: 03:24 EC:15 Rate is 85 beats/min. Rhythm is regular, Normal Sinus Rhythm. QRS [place] is Normal. [place] mh7 interval is normal. QRS interval is normal. QT interval is normal. No Q waves. T waves are Normal. No ST changes noted. Clinical impression: Normal ECG. Administered Medications: 03:23 Drug: GI Cocktail without - (Maalox Suspension 30 ml, Lidocaine Liquid 2 % 15 ea ml) Route: PO; 04:27 Follow up: Response: No adverse reaction 03:26 Drug: Pepcid 20 mg Route: IVP; Site: right antecubital; 04:27 Follow up: Response: No adverse reaction Disposition: 05/06/20 04:18 Discharged to Home. Impression: Gastritis, unspecified. - Condition is Stable. - Discharge Instructions: Gastritis, Adult, [id number]. - Prescriptions for Pepcid 20 mg Oral Tablet - take 1 tablet by ORAL route every 12 hours for 5 days; 10 tablet. - Medication Reconciliation Form, Thank You Letter, Antibiotic Education, Prescription Opioid Use form. - Follow up: Private Physician; When: 1 - 2 days; Reason: Worsening of condition, Recheck today's complaints, Continuance of care, Re-evaluation by your physician. - Problem is an acute exacerbation. - Symptoms have improved. Signatures: Dispatcher [employer] Evelin Morel RN RN ea Habalo, Winsy wh Holmes, Maurice, MD MD mh7 Corrections: (The following items were deleted from the chart) 04:29 04:18 05/06/2020 04:18 Discharged to Home. Impression: Gastritis, unspecified. ea Condition is Stable. Forms are Medication Reconciliation Form, Thank You Letter, Antibiotic Education, Prescription Opioid Use. Follow up: Private Physician; When: 1 - 2 days; Reason: Worsening of condition, Recheck today's complaints, Continuance of care, Re-evaluation by your physician. Problem is an acute exacerbation. Symptoms have improved. mh7
--- NOTE | 2020-05-06 04:19 | ER ---
Nurse's Notes [facility] Name: Lucille Lerner Age: 19 yrs Sex: Male : 2000 Arrival Date: 05/06/2020 Time: 02:53 Bed 7 Private MD: Yamilet Beltrán Diagnosis: Gastritis, unspecified Presentation: 05/06 03:06 Initial Sepsis Screen: Does the patient meet any 2 criteria? No. Patient's initial ea sepsis screen is negative. Does the patient have a suspected source of infection? No. Patient's initial sepsis screen is negative. 03:06 Ebola Screen: No symptoms or risks identified at this time. ea 03:06 Chief complaint: Patient states: burning sensation on his stomach that goes up, Pt wh thinks he has heart burn. Coronavirus screen: Client denies travel out of the [place] in the last 14 days. At this time, the client does not indicate any symptoms associated with coronavirus-19. Risk Assessment: Do you want to hurt yourself or someone else? Patient reports no desire to harm self or others. Onset of symptoms was May 06, 2020. 03:06 Method Of Arrival: Ambulatory 03:06 Acuity: [place] 4 Triage Assessment: 03:05 General: Appears in no apparent distress. Behavior is appropriate for age. Pain: ea Complains of pain in epigastric area Quality of pain is described as burning. Neuro: Level of Consciousness is awake, alert, obeys commands, Oriented to person, place, time, situation. Cardiovascular: Patient's skin is warm and dry. Respiratory: Airway is patent Respiratory effort is even, unlabored, Respiratory pattern is regular, symmetrical. Derm: Skin is pink, warm \T\ dry. Historical: - Allergies: 03:07 No Known Drug Allergies; ea 03:07 No Known Allergies; ea 03:08 No Known Allergies; - Home Meds: 03:07 None [Active]; ea 03:08 amlodipine 10 mg tab 1 tab once daily [Active]; - PMHx: 03:07 Anxiety; Heart Murmur; Panic Attacks; ea 03:08 Anxiety; Heart Murmur; Panic Attacks; Hypertension; - PSHx: 03:08 Tonsillectomy; - Immunization history:: Adult Immunizations up to date, Adult Immunizations up to date. - Social history:: Smoking status: Patient denies any tobacco usage or history of. Smoking status: Patient/guardian denies using. Screenin:05 Abuse screen: Denies threats or abuse. Nutritional screening: No deficits noted. ea Tuberculosis screening: No symptoms or risk factors identified. Fall Risk None identified. Assessment: 03:10 General: Appears in no apparent distress. Behavior is calm, cooperative, appropriate wh for age. Pain: Complains of pain in abdomen and epigastric area. Pain: Quality of pain is described as burning. Neuro: Cardiovascular: Capillary refill < 3 seconds. Respiratory: Airway is patent Respiratory effort is even, unlabored, Respiratory pattern is regular, symmetrical. GI: Abdomen is flat, non-distended, Abd is soft and non tender Reports upper abdominal pain. : No signs and/or symptoms were reported regarding the genitourinary system. EENT: No signs and/or symptoms were reported regarding the EENT system. Derm: Skin is intact, is healthy with good turgor, Skin is pink, warm \T\ dry. normal. Musculoskeletal: Circulation, motion, and sensation intact. 04:28 Reassessment: Patient and/or family updated on plan of care and expected duration. Pain ea level reassessed. Patient is alert, oriented x 3, equal unlabored respirations, skin warm/dry/pink. Discharge instruction given to patient, verbalized the understanding of instruction. Pt left ED ambulatory tolerating well. Vital Signs: 03:04 BP 162 / 90; Pulse 91; Resp 18; Temp 97.7; Pulse Ox 100% ; ea 04:15 BP 143 / 62; Pulse 90; Resp 18; Pulse Ox 99% ; ea ED Course: 02:53 Patient arrived in ED. mr 02:53 Yamilet Beltrán is Private Physician. mr 03:03 Raheem Suarez MD is Attending Physician. [facility] 03:04 Evelin Soni, SHARIFA is Primary Nurse. ea 03:05 Patient has correct armband on for positive identification. Bed in low position. Call ea light in reach. Side rails up X2. 03:06 Arm band placed on right wrist. Patient placed in an exam room, on a stretcher, on ea laboratory monitor, on pulse oximetry. 03:07 Triage completed. wh 03:35 XRAY Chest (1 view) In Process Unspecified. EDMS 04:26 No provider procedures requiring assistance completed. IV discontinued, intact, ea bleeding controlled, No redness/swelling at site. Pressure dressing applied. Administered Medications: 03:23 Drug: GI Cocktail without - (Maalox Suspension 30 ml, Lidocaine Liquid 2 % 15 ea ml) Route: PO; 04:27 Follow up: Response: No adverse reaction ea 03:26 Drug: Pepcid 20 mg Route: IVP; Site: right antecubital; 04:27 Follow up: Response: No adverse reaction ea Outcome: 04:18 Discharge ordered by MD. morris 04:26 Discharged to home ambulatory. 04:26 Condition: stable 04:26 Instructed on discharge instructions, follow up and referral plans. medication usage, Demonstrated understanding of instructions, follow-up care, medications, Prescriptions given X 1. 04:29 Patient left the ED. ea Signatures: Dispatcher [employer] [facility] Emma Alberto Elena, RN RN ea Habalo, Winsy wh Holmes, Maurice, MD MD 7
[2020-05-06 07:28] VITALS: TEMP 97.7
[2020-05-06 07:34] VITALS: BP 143/62; O2SAT 99
--- NOTE | 2020-05-06 08:48 | RAD REPORT ---
EXAM DESCRIPTION: Malik Single View05/06/2020 3:35 am CLINICAL HISTORY: Congestion COMPARISON: August 2019 FINDINGS: The lungs appear clear of acute infiltrate. The heart is normal size IMPRESSION: No acute abnormalities displayed
== END 2020-05-06 04:29 | disposition home or self-care (01) ==
LOC: ER 02:50
DX: K29.70 Gastritis, unspecified, without bleeding (principal); I10 Essential (primary) hypertension; F41.9 Anxiety disorder, unspecified
CPT/HCPCS: 36415; 71045; 80048; 80076; 83690; 83735; 83880; 84484; 85025; 85610; 93005; 96374; 99284

== ENCOUNTER 2021-11-20 08:53 | Emergency (ER) | payer SELFPAY ==
[2021-11-20] MEDS ORDERED: IBUPROFEN 400 MG TAB ONE (09:43)
--- NOTE | 2021-11-20 10:17 | RAD REPORT ---
EXAM DESCRIPTION: RAD - Ankle Right 3 View - 11/20/2021 10:06 am CLINICAL HISTORY: Right ankle pain FINDINGS: No dislocation A small bony density adjacent to the base of the fifth metatarsal likely a fracture. This could be ac karin or chronic and should be correlated clinically
--- NOTE | 2021-11-20 11:15 | RAD REPORT ---
EXAM DESCRIPTION: RAD - Foot Right 3 View - 11/20/2021 10:06 am CLINICAL HISTORY: Right foot pain FINDINGS: Small bony density the base of the fifth metatarsal probably a fracture. This could be acu te or chronic and should be correlated clinically. No dislocation
--- NOTE | 2021-11-20 11:53 | EDPHYS ---
Physician Documentation [facility] Name: Lucille Lerner Age: 21 yrs Sex: Male : 2000 Arrival Date: 11/20/2021 Time: 08:55 Bed 12 Private MD: ED Physician Mau Cheung HPI: 11/20 09:33 This 21 yrs old Black Male presents to ER via Wheelchair with complaints of Ankle pm1 Injury. 09:33 The patient presents with an injury, pain, that is acute. The complaints affect the pm1 right foot and right ankle. Onset: The symptoms/episode began/occurred 3 day(s) ago. Context: The problem was sustained at a sports field or court, resulted from turned his ankle while playing basketball, The patient can partially bear weight on the affected extremity. the patient is able to ambulate, with moderate difficulty. Associated signs and symptoms: Pertinent positives: swelling, Pertinent negatives: calf tenderness, numbness, tingling. Modifying factors: the symptoms are aggravated by wearing shoes. Severity of symptoms: in the emergency department the symptoms are unchanged. The patient has not experienced similar symptoms in the past. The patient has not recently seen a physician. Historical: - Allergies: 09:30 No Known Allergies; vg1 - Home Meds: 09:30 Lisinopril Oral [Active]; losartan oral [Active]; vg1 - PMHx: 09:30 Anxiety; Heart Murmur; Hypertension; Panic Attacks; vg1 - Immunization history:: Client reports having NOT received the Covid vaccine. - Social history:: Smoking status: Patient denies any tobacco usage or history of. ROS: 09:33 Constitutional: Negative for fever, chills, and weight loss, Cardiovascular: Negative pm1 for chest pain, palpitations, and edema, Respiratory: Negative for shortness of breath, cough, wheezing, and pleuritic chest pain. 09:33 Skin: Negative for injury, rash, and discoloration, Neuro: Negative for headache, weakness, numbness, tingling, and seizure. 09:33 MS/extremity: Positive for pain, of the lateral side of right foot. 09:33 All other systems are negative. Exam: 09:33 Constitutional: This is a well developed, well nourished patient who is awake, alert, pm1 and in no acute distress. Head/Face: Normocephalic, atraumatic. 09:33 Skin: Warm, dry with normal turgor. Normal color with no rashes, no lesions, and no evidence of cellulitis. 09:33 Cardiovascular: Exam negative for acute changes, Rate: normal, Rhythm: regular, Pulses: no pulse deficits are appreciated. 09:33 Respiratory: Exam negative for acute changes, respiratory distress, shortness of breath. 09:33 Musculoskeletal/extremity: Extremities: grossly normal except: noted in the proximal lateral side of right foot, 5th metatarsal: 09:33 Neuro: Exam negative for acute changes, Orientation: is normal, Mentation: is normal, Motor: is normal, moves all fours. Vital Signs: 09:26 BP 143 / 88; Pulse 79; Resp 16; Temp 98.3(O); Pulse Ox 100% on R/A; Weight 122.47 kg; vg1 Height 6 ft. 2 in. (187.96 cm); Pain 8/10; 09:26 Body Mass Index 34.67 (122.47 kg, 187.96 cm) vg1 MDM: 09:33 Patient medically screened. pm1 11:35 Data reviewed: vital signs. Data interpreted: Pulse oximetry: on room air is 100 %. pm1 Interpretation: normal. Counseling: I had a detailed discussion with the patient and/or guardian regarding: the historical points, exam findings, and any diagnostic results supporting the discharge/admit diagnosis, radiology results, the need for outpatient follow up, to return to the emergency department if symptoms worsen or persist or if there are any questions or concerns that arise at home. 11/20 09:34 Order name: Ankle Right 3 View XRAY; Complete Time: 10:41 pm1 11/20 09:34 Order name: Foot Right 3 View XRAY; Complete Time: 11:34 pm1 11/20 09:34 Order name: Crutches; Complete Time: 09:39 pm1 11/20 11:51 Order name: Splint - Posterior Leg; Complete Time: 12:35 pm1 Administered Medications: 09:39 Drug: Ibuprofen 800 mg Route: PO; ss 12:35 Follow up: Response: No adverse reaction ss Disposition: 11/21 09:57 Co-signature as Attending Physician, Mau Cheung MD. rn Disposition Summary: 06/13/22 11:52 Discharge Ordered Location: Home pm1 Problem: new pm1 Symptoms: have improved pm1 Condition: Stable pm1 Diagnosis - Fracture of fifth metatarsal bone pm1 Followup: pm1 - With: Emergency Department - When: As needed - Reason: Worsening of condition Followup: pm1 - With: Private Physician - When: 2 - 3 days - Reason: Recheck today's complaints, Continuance of care, Re-evaluation by your physician Followup: pm1 - With: Kris Mancuso DPM - When: 2 - 3 days - Reason: Recheck today's complaints, Continuance of care, Re-evaluation by your physician Discharge Instructions: - Discharge Summary Sheet pm1 - Crutch Use, Adult pm1 - Metatarsal Fracture pm1 - Cast or Splint Care, Adult, [id number] pm1 Forms: - Medication Reconciliation Form pm1 - Thank You Letter pm1 - Antibiotic Education pm1 - Prescription Opioid Use pm1 Prescriptions: - Diclofenac Sodium 75 mg Oral tablet,delayed release (DR/EC) - take 1 tablet by ORAL route 2 times per day As needed; 30 tablet; Refills: 0, pm1 Product Selection Permitted Signatures: Dispatcher [employer] EDMS Mau Cheung MD MD rn Smirch, Shelby, RN RN ss Marinas, Patrick, NP ELEMENTARY INSTRUCTIONAL COACH pm1 Sunshine Corey RN RN vg1 Corrections: (The following items were deleted from the chart) 11/20 11:51 11:51 Splint - Leg: Short Leg ordered. pm1 pm1
--- NOTE | 2021-11-20 11:53 | ER ---
Nurse's Notes [facility] Name: Lucille Lerner Age: 21 yrs Sex: Male : 2000 Arrival Date: 11/20/2021 Time: 08:55 Bed 12 Private MD: Diagnosis: Fracture of fifth metatarsal bone Presentation: 11/20 09:26 Chief complaint: Patient states: " I was playing basketball about two days and I rolled vg1 my Right ankle, I didn't fall but I know I rolled it pretty hard". Coronavirus screen: Vaccine status: Patient reports being unvaccinated. Client denies travel out of the [place] in the last 14 days. Ebola Screen: Patient denies exposure to infectious person. Patient denies travel to an Ebola-affected area in the 21 days before illness onset. Initial Sepsis Screen: Does the patient meet any 2 criteria? No. Patient's initial sepsis screen is negative. Does the patient have a suspected source of infection? No. Patient's initial sepsis screen is negative. Risk Assessment: Do you want to hurt yourself or someone else? Patient reports no desire to harm self or others. Onset of symptoms was November 18, 2021. 09:26 Method Of Arrival: Wheelchair vg1 09:26 Acuity: [place] 4 vg1 Triage Assessment: 09:30 General: Appears comfortable, Behavior is calm, cooperative. Pain: Complains of pain in vg1 right ankle Pain currently is 0 out of 10 on a pain scale. at worst was 8 out of 10 on a pain scale. Musculoskeletal: Range of motion: limited in right ankle. Historical: - Allergies: 09:30 No Known Allergies; vg1 - Home Meds: 09:30 Lisinopril Oral [Active]; losartan oral [Active]; vg1 - PMHx: 09:30 Anxiety; Heart Murmur; Hypertension; Panic Attacks; vg1 - Immunization history:: Client reports having NOT received the Covid vaccine. - Social history:: Smoking status: Patient denies any tobacco usage or history of. Screenin:49 Abuse screen: Denies threats or abuse. Denies injuries from another. Nutritional ss screening: No deficits noted. Tuberculosis screening: Never had TB. Fall Risk None identified. Assessment: 12:49 Reassessment: Patient appears in no apparent distress at this time. Patient and/or ss family updated on plan of care and expected duration. Pain level reassessed. Patient is alert, oriented x 3, equal unlabored respirations, skin warm/dry/pink. Cardiovascular: Capillary refill < 3 seconds is brisk in bilateral toes Patient's skin is warm and dry. Derm: Skin is pink, warm \\T\\ dry. normal. Vital Signs: 09:26 BP 143 / 88; Pulse 79; Resp 16; Temp 98.3(O); Pulse Ox 100% on R/A; Weight 122.47 kg; vg1 Height 6 ft. 2 in. (187.96 cm); Pain 8/10; 09:26 Body Mass Index 34.67 (122.47 kg, 187.96 cm) vg1 ED Course: 08:55 Patient arrived in ED. rg4 09:08 Sami Mcclain NP is PHCP. pm1 09:08 Mau Cheung MD is Attending Physician. pm1 09:30 Triage completed. vg1 09:30 Arm band placed on. vg1 09:35 Katelynn Gonzalez RN is Primary Nurse. ss 10:05 Ankle Right 3 View XRAY In Process Unspecified. EDMS 10:05 Foot Right 3 View XRAY In Process Unspecified. EDMS 11:53 Kris Mancuso DPM is Referral Physician. pm1 12:35 No provider procedures requiring assistance completed. Patient did not have IV access ss during this emergency room visit. Crutch training done. Orthoglass splint: Posterior short lleg splint applied on right leg. 12:49 Patient has correct armband on for positive identification. Bed in low position. ss Administered Medications: 09:39 Drug: Ibuprofen 800 mg Route: PO; ss 12:35 Follow up: Response: No adverse reaction ss Medication: 12:49 VIS not applicable for this client. ss Outcome: 11:52 Discharge ordered by MD. pm1 12:49 Discharged to home via wheelchair, with crutches, with friend. ss 12:49 Condition: good 12:49 Discharge instructions given to patient, Instructed on discharge instructions, follow up and referral plans. medication usage, Demonstrated understanding of instructions, follow-up care, medications, Prescriptions given X 1. 12:51 Patient left the ED. ss Signatures: Dispatcher [employer] EDKatelynn Bernal RN RN ss Sami Mcclain, PRODUCE DEPARTMENT MANAGER PRODUCE DEPARTMENT MANAGER pm1 Na Corey rg4 Sunshine Corey RN RN vg1 Corrections: (The following items were deleted from the chart) 09:30 09:26 Pulse 79bpm; Resp 16bpm; Pulse Ox 100% RA; Temp 98.3F Oral; 122.47 kg; Height 6 vg1 ft. 2 in.; BMI: 34.6; Pain 8/10; vg1
[2021-11-20 12:57] VITALS: BP 143/88; TEMP 98.3; O2SAT 100
== END 2021-11-20 12:51 | disposition home or self-care (01) ==
LOC: ER 08:53
PROC: 2W3QX1Z Immobilization of Right Lower Leg using Splint (ICD-10-PCS; principal; 2021-11-20)
DX: S92.351A Displaced fracture of fifth metatarsal bone, right foot, initial encounter for closed fracture (principal); X50.1XXA Overexertion from prolonged static or awkward postures, initial encounter; Y93.67 Activity, basketball; Y92.89 Other specified places as the place of occurrence of the external cause; I10 Essential (primary) hypertension; F41.9 Anxiety disorder, unspecified; R01.1 Cardiac murmur, unspecified; F41.0 Panic disorder [episodic paroxysmal anxiety]
CPT/HCPCS: 99284